=== PATIENT | male | born 1960 | race Caucasian/White ===

== ENCOUNTER 2017-10-19 18:38 | Inpatient (IN) | payer MEDICARE, MEDICAID ==
[~2017-10-19] VITALS: Ht 188 cm; Wt 104.8 kg
[2017-10-19 18:45] VITALS: BP 172/84
[2017-10-19] MEDS ORDERED: OXYCONTIN10 M1 PO (18:57)
[2017-10-19] MEDS ORDERED: HYDRALAZINE 2525 MG PO (18:57)
[2017-10-19] MEDS ORDERED: MELATONIN3 MG PO (18:58)
[2017-10-19] MEDS ORDERED: MUCINEX600 MG PO (18:58)
[2017-10-19] MEDS ORDERED: NEURONTIN600 MG PO (18:59)
[2017-10-19] MEDS ORDERED: VITAMIN D50000 UNIT PO (18:59)
[2017-10-19] MEDS ORDERED: SYNTHROID112 MCG PO (18:59)
[2017-10-19] MEDS ORDERED: COREG25 MG PO (19:00)
[2017-10-19] MEDS ORDERED: DUONEB 2.5-0.5 M3 ML INH (19:00)
[2017-10-19] MEDS ORDERED: SENSIPAR 30 MG30 M1 PO (19:01)
[2017-10-19] MEDS ORDERED: CALCIUM ACETAT667 MG PO (19:01)
[2017-10-19] MEDS ORDERED: ONDANSETRON HCL4 M2 PO (19:01)
[2017-10-19] MEDS ORDERED: APAP650 PO (19:02)
[2017-10-19] MEDS ORDERED: RESTORIL15 MG PO (19:02)
[2017-10-19 20:10] LABS: HEMATOCRIT 32.3 % (42.0-52.0); HEMOGLOBIN 10.5 gm/dL (14.0-18.0); MCH 29.9 pg (26.0-34.0); MCHC 32.4 g/dL (28.0-37.0); MCV 92.2 fL (80.0-100.0); MPV 9.1 fl. (7.2-11.1); NUCLEATED RBCS 0 /100WBC; PLATELET COUNT* 187 thou/uL (150-400); RBC 3.51 mil/uL (4.50-6.00); RDW-CV 14.4 % (10.5-14.5); WBC 8.6 thou/uL (4.0-11.0)
[2017-10-19 20:18] LABS: ANION GAP 10 mmol/L (7-16); BUN 34 mg/dL (7-18); CALCIUM 8.6 mg/dL (8.5-10.1); CHLORIDE 100 mmol/L (98-107); CO2 29 mmol/L (21-32); CREATININE 7.1 mg/dL (0.6-1.3); GLUCOSE 96 mg/dL (70-99); POTASSIUM 3.7 mmol/L (3.5-5.1); SODIUM 139 mmol/L (136-145)
[2017-10-19 20:25] LABS: ALBUMIN 2.8 g/dL (3.4-5.0); ALKALINE PHOSPHATASE 135 U/L (46-116); SGOT 17 U/L (15-37); TOTAL BILIRUBIN 0.9 mg/dL (<0.1-1.0); TROPONIN-I LEVEL 0.16 ng/mL (<0.06)
[2017-10-19 20:47] LABS: SGPT < 6 U/L (30-65)
[2017-10-19 20:56] LABS: ABSOLUTE EOSINOPHILS 0.3 thou/uL (0.0-0.7); ABSOLUTE LYMPHOCYTES 0.4 thou/uL (0.8-5.3); ABSOLUTE NEUTROPHILS 6.9 thou/uL (1.6-8.1); MAGNESIUM 2.2 mg/dL (1.8-2.4)
[2017-10-19 20:57] LABS: HYPOCHROMASIA 2+; OVALOCYTES 1+; PLATELET ESTIMATE ADEQUATE
[2017-10-19 22:55] VITALS: BP 136/73
[2017-10-19 23:00] VITALS: BP 146/68
--- NOTE | 2017-10-20 00:10 | NUR ---
RECEIVED REPORT FROM ER. ARRIVED TO ROOM AT 2300. BATH GIVEN WITH COMPLETE SKIN ASSESSMENT. MULTIPLE LESIONS AND SCARS. PT HAS IMMOBILIZER TO LT ARM DUE TO FX LT SHOULDER. AREA TO LT LATERAL BASE OF THUMB NOTED TO HAVE DK ESCAR TISSUE. 4X4 APPLIED TO KEEP FROM RUBBING ANY FURTHER ON IMMOBILIZER. AREA NOTED TO LT ARM PIT DUE TO RUBBING ON IMMOBILIZER ALSO, ABD APPLIED. PT HAS LT ARM FISTULA, UNABLE TO EVALUATE IT AT THIS TIME. RT CHEST TESSIO NOTED. ENCOURAGING PT TO SIT UPON SIDE OF BED FOR REDRESSING. ASKING PT TO STAND TO HELP BUT STATES "I CAN'T". PT ATE TURKEY SANDWICH THEN NPO AFTER THIS. TELEMETRY APPLIED SHOWING SR. SEE ADMISSION ASSESSMENT AND HX. WILL CONT TO MONITOR AND ASSIST NEEDED.
[2017-10-20 04:00] VITALS: BP 132/65
--- NOTE | 2017-10-20 07:17 | NUR ---
ASSISTED WITH REPOSITIONING FROM BACK TO RT SIDE. C/O NAUSEA, NOTED TO BE CHRONIC. NO MEDS AVAILABLE. NPO SINCE ATE SANDWICH AT 0030. TELEMETRY CONT TO SHOW SR. HOURLY ROUNDING OBSERVED.
[2017-10-20 11:35] VITALS: BP 128/65
--- NOTE | 2017-10-20 12:45 | NUR ---
CM ASSESSMENT: Pt is A&O. Normally resides at home with his and children. Pt was discharged from [facility] skilled yesterday, went home, felt weak and fell. Pt states that he has a walker and cane that he can use. Pt received HD at [facility] on a MWF schedule. No hx of HH. Pt states that he is open to return to [facility] [place]. Spoke with Charlee at [facility], she requested that an initial referral be faxed, she will have the SW check for skilled days. CM faxed initial referral. Pt scheduled to have dialysis today. PT/OT evals ordered. Following.
--- NOTE | 2017-10-20 13:03 | NUR ---
Nutrition: Consult received for "renal diet." Spoke with pt; he refused education. He stated "I already have all that info from dialysis. I try to eat some things right, but I don't follow it 100%" Wt: 231#. H/o DM, ESRD on HD. Pt stated his last A1c was 5.3%. Has a healing ulcer on coccyx. Pt was eating lunch during visit, but not much. He stated he was full (about 40-50% eaten). Mild nutrition risk at this time. Pt appears non-compliant. Expect good po intake. Consult RD if further education is desired.
--- NOTE | 2017-10-20 14:29 | EKG ---
[place] [address] ELECTROCARDIOGRAM REPORT Name: NEY SALDANA Room: [address] ADM IN .R.#: [id number] Admission: 10/19/17 Attend Phys: Montrell Cabral Discharge: Date of : 60 Report #: [id number] THIS REPORT FOR: //name// [facility] ED Test Date: 2017-10-19 Test Time: 19:23:35 Pat Name: NEY SALDANA Department: Room: [address] Gender: M Lathe Turner: : 1960 Requested By: Melissa De Jesus Order Number: [id number] Yoshi MD: Mendez Richards Measurements Intervals [place] Rate: 75 P: 43 VA: 189 QRS: 32 QRSD: 113 T: 74 QT: 404 QTc: 452 Interpretive Statements Sinus rhythm Probable left atrial enlargement septal infarct, age indeterminate nonspecific st changes No previous ECG available for comparison Electronically Signed On 10-20-2017 14:28:53 BISQUE KILN DRAWER by Mendez Richards [email or web address] <ELECTRONICALLY SIGNED> By: Mendez Richards MD, [facility] 10/20/17 1428 22 22 Mendez Richards MD, FACC /EPI
--- NOTE | 2017-10-20 14:59 | NUR ---
WOUND CARE NOTE: CONSULT RECEIVED FOR PRESSURE WOUND SACRUM, L. HAND. PATIENT PRESENTS WITH BLANCHABLE REDNESS TO HIS SACROCOCCYGEAL REGION WITH A PARTIAL THICKNESS WOUND TO THE LEFT SIDE. BELIEVE THIS TO BE A FRICTION INJURY AND BELIEVE PATIENT TO HAVE A FUNGAL RASH. PLACED BARRIER OINTMENT WITH ANTIFUNGAL. LEFT AXILLA: HEALING BLISTER TO THE MEDIAL ASPECT OF HIS ARM. LEFT OPEN TO AIR. PATIENT'S AXILLA IS MACERATED, BELIEVE TO HAVE A FUNGAL RASH WELL. CLEANSED WELL WITH SOAP AND WATER, PATTED DRY. APPLIED INTERDRY AG. LEFT THUMB: ULCER MEASURING 1X1.3 WITH DRY, BLACK SCAB COVERING ENTIRE WOUND BED. NO DRAINAGE NOTED. MARICRUZ-WOUND WITH MAROON DISCOLORATION. CLEANSED WITH SOAP AND WATER, PATTED DRY. PAINTED WITH BETADINE AND ALLOWED TO DRY. LEFT WRIST: PARTIAL THICKNESS ULCERATION MEASURING 1.2X1.2X0.1, HEALING. PALE, MOIST WOUND BED. CLEANSED WITH SOAP AND WATER, PATTED DRY. PAINTED WITH BETADINE AND ALLOWED TO DRY. PATIENT TOLERATED DRESSING CHANGES WELL. EDUCATED PATIENT ON FINDINGS AND DRESSING SELECTIONS, COMMUNICATED UNDERSTANDING. EDUCATED ON OFFLOADING/TURNING TO KEEP OFF OF HIS BOTTOM, COMMUNICATED UNDERSANDING. RECOMMEND ENCOURAGE GOOD NUTRITION AND HYDRATION
[2017-10-20 15:30] VITALS: BP 148/74
--- NOTE | 2017-10-20 18:57 | NUR ---
PATINET RESTING IN BED. UP TO CHAIR WITH MAX ASSIST X2. AOX4. CURRENTLY RECEIVEING DIALYSIS IN ROOM. VITAL SIGNS SRTABLE AND PATINE TIN NO APPARNET DISTRESS AT THIS TIME. PATINET WAS EDUCATED ON PLAN OF CAER AND THE NEED TO FOLLOW A RENAL DIET. PATINET ORDERED [employer] CH[employer]EN SANDWICH FOR DINNER. HOURLY ROUNDING COMPLETED FOR PATIENT SAFETY.
[2017-10-21 04:00] VITALS: BP 156/77
[2017-10-21 04:54] LABS: HEMATOCRIT 30.8 % (42.0-52.0); HEMOGLOBIN 9.9 gm/dL (14.0-18.0); MCH 29.6 pg (26.0-34.0); MCHC 32.1 g/dL (28.0-37.0); MCV 92.2 fL (80.0-100.0); MPV 9.3 fl. (7.2-11.1); RBC 3.34 mil/uL (4.50-6.00); RDW-CV 14.5 % (10.5-14.5); WBC 6.9 thou/uL (4.0-11.0)
[2017-10-21 05:08] LABS: CALCIUM 8.3 mg/dL (8.5-10.1); POTASSIUM 3.8 mmol/L (3.5-5.1); TROPONIN-I LEVEL 0.13 ng/mL (<0.06)
--- NOTE | 2017-10-21 07:25 | NUR ---
ASSUMED CARE OF PT AT 1930, NURSING ASSESSMENT COMPLETED AT START OF SHIFT. PT CONTINUES ON TELE MONITOR, TRACING SINUS RHYTHM THIS SHIFT. PT C/O NAUSEA AFTER TAKING HS MEDICATIONS. ZOFRAN GIVEN. PT WAS DIALYSED IN ROOM AT START OF SHIFT, PER DIALYSIS NURSE, 3L OF FLUID REMOVED FROM PATIENT. AT 0600, PT C/O NOT BEING ABLE TO URINATE, PT BLADDER SCANNED AND OVER [address]DER[address] LONG NOTIFIED, AND NEW ORDERS RECEIVED FOR URINARY CATHETER. SPOKE TO PT IN REGARDS TO NEED FOR URINARY CATHETER, PT RELUCTANT, STATING HE HAD NEVER HAD ONE BEFORE AND WAS ANXIOUS ABOUT IT. EDUCATED PT IN REGARDS TO BLADDER DISTENTION, PT STATED HE WANTED TO WAIT UNTIL AFTER BREAKFAST. DISCUSSED WITH AM SHIFT NURSE DURING REPORT. HOURLY ROUNDING COMPLETED THIS SHIFT, Q2H TURNS COMPLETED. CALL LIGHT REMAINS WITHIN REACH.
[2017-10-21 11:20] LABS: URINE BILIRUBIN NEGATIVE (Negative); URINE BLOOD NEGATIVE (Negative); URINE CLARITY CLEAR; URINE COLOR BROWN; URINE GLUCOSE-RANDOM TRACE (Negative); URINE KETONES NEGATIVE (Negative); URINE LEUKOCYTES-REFLEX NEGATIVE (Negative); URINE NITRITE-REFLEX NEGATIVE (Negative); URINE PROTEIN 3+ (Negative); URINE SPECIFIC GRAVITY 1.025 (1.005-1.030); URINE UROBILINOGEN 0.2 E.U./dl (0.2-1.0)
[2017-10-21 11:26] LABS: BACTERIA-REFLEX 1-9 Few /HPF (None Seen); CASTS None Seen /LPF (None Seen); CRYSTALS None Seen /LPF (None Seen); MUCUS None Seen strn/LPF (None Seen); SQUAMOUS 0-3 Few /LPF (0-3); URINE RBC 3-10 Few /HPF (0-2); URINE WBC-REFLEX 0-5 Rare /HPF (0-5)
[2017-10-21 11:28] VITALS: BP 177/93
--- NOTE | 2017-10-21 15:01 | NUR ---
Spoke with Pt regarding disposition, Pt stated that he does not want to go to [facility], but is in agreement with going to [facility]. Spoke with Angie, she informed that [facility] had sent a referral, but stated that she hadn't heard anything further. CM faxed updated referral. Per Dr Bautista, anticipate that Pt will be ready to dc tomorrow. Following.
--- NOTE | 2017-10-21 15:59 | 2DMMODE ---
[place] [address] 2 D/M-MODE ECHOCARDIOGRAM Name: NEY SALDANA Room: [address] IN [facility]#: [id number] Admission: 10/19/17 Attend Phys: Raman Diaz Discharge: Date of : 60 Date of Service: 10/21/17 1558 Report #: [id number] THIS REPORT FOR: //name// APPROVED REPORT Study performed: 10/21/2017 11:10:28 EXAM: Comprehensive 2D, Doppler, and color-flow Echocardiogram Patient Location: In-Patient Room #: 200 Status: routine BSA: 2.31 HR: 74 bpm BP: 156/77 mmHg Rhythm: NSR Other Information Study Quality: Good Indications Elevated Troponin weakness 2D Dimensions LVEF(%): 30.15 (>50%) IVSd: 17.76 (7-11mm) LVOT Diam: 19.44 (18-24mm) LVDd: 43.68 mm PWd: 15.65 (7-11mm) Ascending Ao: 31.24 (22-36mm) LVDs: 37.55 (25-40mm) Aortic Root: 32.33 mm Osman's LVEF: 30.15 % Volumes Left Atrial Volume (Systole) LA ESV Index: 42.40 mL/m2 Aortic Valve AoV Peak Luis E.: 1.93 m/s AO Peak Gr.: 14.84 mmHg LVOT Max P.33 mmHg AO Mean Gr.: 8.89 mmHg LVOT Mean P.98 mmHg LVOT Max V: 0.76 m/s AO V2 VTI: 40.24 cm LVOT Mean V: 0.45 m/s MATIAS (VTI): 1.09 cm2 LVOT V1 VTI: 14.77 [place] [address] 2 D/M-MODE ECHOCARDIOGRAM Name: NEY SALDANA Room: [address]#: [id number] Admission: 10/19/17 Attend Phys: Raman Diaz Discharge: Date of : 60 Date of Service: 10/21/17 1558 Report #: [id number] Mean Gr.: 6.15 mmHg E/A Ratio: 1.49 MV Decel. Time: 164.26 ms MV E Max Luis E.: 1.67 m/s MV PHT: 47.63 ms MVA (PHT): 4.62 cm2 TDI E/Lateral E': 18.56 E/Medial E': 33.40 Medial E' Luis E.: 0.05 m/s Lateral E' Luis E.: 0.09 m/s Pulmonary Valve PV Peak Luis E.: 0.81 m/s PV Peak Gr.: 2.64 mmHg Tricuspid Valve TR Peak Gr.: 34.59 mmHg RVSP: 39.00 mmHg Left Ventricle The left ventricle is normal size. There is global hypokinesis. Moderate concentric left ventricular hypertrophy. Left ventricular systolic function is moderately decreased. LVEF is 35-40%. Transmitral Doppler flow pattern suggests restrictive physiology. Right Ventricle Right ventricle is mildly dilated. The right ventricular systolic function is normal. Atria Left atrium is moderately dilated. Right atrium is mildly dilated. Aortic Valve Moderate aortic valve sclerosis. No aortic regurgitation is present. Moderate aortic stenosis. Mitral Valve Moderate mitral annular calcification. Mild mitral regurgitation. No evidence of mitral valve stenosis. Tricuspid Valve The tricuspid valve is normal in structure. Mild tricuspid regurgitation. The RVSP is 45-50 mmHg. Pulmonic Valve The pulmonary valve is normal in structure. [place] [address] 2 D/M-MODE ECHOCARDIOGRAM Name: NEY SALDANA Room: [address]#: [id number] Admission: 10/19/17 Attend Phys: Raman Diaz Discharge: Date of : 60 Date of Service: 10/21/17 1558 Report #: [id number] regurgitation. Great Vessels The aortic root is normal in size. IVC is normal in size and collapses with >50% inspiration Pericardium There is no pericardial effusion. <Conclusion> The left ventricle is normal size. Moderate concentric left ventricular hypertrophy. There is global hypokinesis. LVEF is 35-40%. Transmitral Doppler flow pattern suggests restrictive physiology. Right ventricle is mildly dilated. Left atrium is moderately dilated. Right atrium is mildly dilated. Moderate aortic valve sclerosis. Moderate aortic stenosis. Moderate mitral annular calcification. Mild mitral regurgitation. Mild tricuspid regurgitation. The RVSP is 45-50 mmHg. <ELECTRONICALLY SIGNED> By: Ricardo Phillip MD, FACC 10/21/17 1558 1558 1558 Ricardo Phillip MD, FACC /INF
--- NOTE | 2017-10-21 17:20 | CON ---
[address] [address] CONSULTATION Name: NEY SALDANA Room: [address] IN ..#: [id number] Admission: 10/19/17 Attend Phys: Montrell Cabral Discharge: Date of : 60 Report #: [id number] THIS REPORT FOR: //name// CC: Dorothy Diaz DATE OF SERVICE: 10/20/2017 HISTORY OF PRESENT ILLNESS: The patient is a 56-year-old white male who I was asked to see in the hospital today after he complained of being weak. Unfortunately, no old records are available. The history is obtained from the patient. There are no family members available. The patient has a previous history of diabetes and developed end-stage renal disease about 2 years ago. He has been on hemodialysis. He currently has a temporary dialysis catheter in place. Apparently around September 23, he was at home when he tripped and fell in the kitchen. He fractured his left arm. He was admitted to [facility] for 5 days. His arm was placed in a sling and he did not require surgery. He was then discharged to a group home unit for rehab. The patient has been primarily in a wheelchair. He has been dialyzing. He was apparently discharged from the group home to home yesterday and was sent home by transportation. When he got home; however, yesterday he complained of being very weak and could not walk. An ambulance was called. He had some nausea, but no recent bleeding. He denied any chest pain, shortness of breath, palpitations, or syncope. PAST MEDICAL HISTORY: Otherwise significant for tonsillectomy, appendectomy, and he has a history of hypertension. MEDICATIONS: Consists of carvedilol, Neurontin for restless leg syndrome, hydralazine, , and oxycodone for his shoulder pain. ALLERGIES: He has no known drug allergies. FAMILY HISTORY: Negative for heart disease. SOCIAL HISTORY: He is . He and his live in [place]. He is retired from a [employer]. No smoking. drinks alcohol. He does smoke marijuana. PHYSICAL EXAMINATION: GENERAL: Revealed a middle-aged male lying in bed, he appeared in no distress. VITAL SIGNS: He had a blood pressure 140/70, pulse 70, he is afebrile. His height is 6 feet 2 inches, weight 230 pounds. HEENT: He was anicteric. Conjunctivae are pink. Mucous members are dry. NECK: Veins do not appear to be distended. CHEST: [place] [address] CONSULTATION Name: NEY SALDANA Room: [address]#: [id number] Admission: 10/19/17 Attend Phys: Montrell Cabral Discharge: Date of : 60 Report #: [id number] HEART: Regular rate and rhythm without murmur. ABDOMEN: Obese. EXTREMITIES: Had no edema. Dorsalis pedis pulse cannot be palpated. SKIN: Cool and dry. NEUROLOGIC: Very slow moving. ECG shows a sinus rhythm, septal Q-waves, nonspecific ST-segment changes. His workup in the emergency room yesterday, apparently no x-rays were performed. LAB WORK: Sodium 139, creatinine 7, glucose 96. Liver function studies were normal. Troponin 0.17. BNP 29,347. White blood cell count 8.6, hemoglobin 10.5. IMPRESSION AND RECOMMENDATIONS: 1. Fatigue. Suspect secondary to deconditioning. I would recommend physical therapy. 2. Hypertension. The patient has been on a beta yumiko and hydralazine. 3. Restless leg syndrome. 4. End-stage renal disease. The patient is on hemodialysis. 5. Recent fracture of his left arm. Apparently, no surgery is planned. 6. Anemia. No history of bleeding. 7. Borderline troponin. Doubt myocardial infarction. Recommend no further cardiac evaluation. <ELECTRONICALLY SIGNED> By: Mendez Richards MD, FACC 10/21/17 1720 0922 [id number] Richards MD, FACC /nt
[2017-10-21 17:54] VITALS: BP 173/89
[2017-10-21 18:12] LABS: HEPATITIS B SURFACE AG Negative (Negative)
[2017-10-21 20:00] VITALS: BP 97/67
[2017-10-22 00:17] VITALS: BP 127/75
[2017-10-22 03:59] VITALS: BP 192/91
[2017-10-22 08:24] VITALS: BP 135/76
--- NOTE | 2017-10-22 08:29 | NUR ---
ASSUMED CARE OF PATIENT AT APPROXIMATELY 1999. PATIENT A/O X 4 AND VSS. PATIENT WAS SLIGHTLY AGITATED UPON FIRST ASSESSMENT. HE CAN NOT FIND A [employer] GIFT/CREDIT CARD AND A CELL PHONE CHARGING CORD. PATIENT HAS DISCUSSED THE FACT WITH NURSING THAT HE FEELS THAT THE DAY NURSING STAFF COULD HAVE MISPLACED THEM. PATIENT HAD VERY LITTLE URINE OUTPUT OVERNIGHT. PRESENT URINE IS TEA-COLORED AND CLEAR. PATIENT SCHEDULED FOR DIALYSIS TODAY (10-22-17) AT 1300. PER DAY NURSING, PATIENT IS TO GO TO [facility] F[facility] AFTER DIALYSIS IS COMPLETED TODAY. PATIENT RECEIVED PAIN MEDICATION X 2 DURING NIGHT FOR PAIN LEVELS OF 6-7/10 ON PAIN SCALE IN HIS LEFT SHOULDER AREA. NO OTHER COMPLAINTS OVERNIGHT. NURSING TO FOLLOW-UP NECESSARY. ALL FALL PRECAUTIONS IN PLACE, INCLUDING CALL LIGHT WITHIN REACH. WILL CONTINUE TO MONITOR CLOSELY.
[2017-10-22] MEDS ORDERED: PHENAZOPYRIDIN100 M1 PO (09:30)
[2017-10-22] MEDS ORDERED: FLOMAX0.4 MG PO (09:30)
[2017-10-22] MEDS ORDERED: LEVSIN0.125 MG SUBLING (09:30)
[2017-10-22] MEDS ORDERED: IMDUR 30 MG TAB30 M1 PO (09:30)
[2017-10-22 14:44] VITALS: BP 135/76
--- NOTE | 2017-10-22 14:59 | NUR ---
Pt to dc to [facility] today. Faxed dc orders. Chart copied. Nurse report number provided, . Left VM for Pt's , Tammy. Facility to medicinal plant picker at 6pm.
[2017-10-22 17:05] VITALS: BP 166/79
--- NOTE | 2017-10-22 17:37 | NUR ---
ASSUMED CARE OF PATIENT AFTER REPORT THIS MORNING. PATIENT AWAKE, ALERT, AN DORIENTED APPROPRIATELY. PHYSICAL ASSESSMENT COMPLETED AND CHARTED. GIVEN SCHEDULED MEDICATIONS, SEE EMAR FOR DOCUMENTATION. VITAL SIGNS STABLE. OXYGEN SATURATION WITHIN NORMAL LIMITS ON ROOM AIR. PATIENT WENT TO DIALYSIS AT 1230. WHEN RETURNED TO ROOM THIS NURSE RESUMED CARE OF THIS PATIENT. RECEIVED ORDERS TO DISCHARGE PATIENT. IV DISCONTINUED. DISCHARGE PAPERWORK COMPLETED AND SIGNED BY ALL APPROPRIATE PARTIES, ON PATIENT'S CHART. REPORT CALLED AND GIVEN TO MAYITO AT [facility] IN [place]. NURSING WILL CONTINUE TO MONITOR UNTIL DISCHARGE.
--- NOTE | 2017-10-22 18:48 | NUR ---
PATIENT DISCHARGED AT THIS TIME.
--- NOTE | 2017-10-24 16:22 | CON ---
[address] [address] CONSULTATION Name: NEY SALDANA Room: [address]#: [id number] Admission: 10/19/17 Attend Phys: Montrell Cabral Discharge: 10/22/17 Date of : 60 Report #: [id number] THIS REPORT FOR: //name// CC: Dorothy Diaz NEPHROLOGY CONSULTATION CONSULTING PHYSICIAN: Raman Diaz DO REASON FOR CONSULTATION: End-stage kidney disease. HISTORY OF PRESENT ILLNESS: A 56-year-old gentleman with history of end-stage kidney disease, admitted after a fall at home, he suffered a left humeral fracture at [facility] last month, was discharged to a intermediate facility, eventually went home, but again had a fall and is admitted again with weakness, inability to care for himself and an elevated troponin level, presently has no complaints. REVIEW OF SYSTEMS: Constitutional, psych, heme, eyes, ENT, respiratory, cardiac, GI, , endocrine, all negative except as documented above. PAST MEDICAL AND SURGICAL HISTORY: End-stage kidney disease, on hemodialysis on Friday, Friday and Friday, history of appendectomy. SOCIAL HISTORY: Positive for marijuana. No tobacco. FAMILY HISTORY: Not pertinent in this 56-year-old gentleman. CURRENT MEDICATIONS: Reviewed. PHYSICAL EXAMINATION: VITAL SIGNS: Blood pressure 128/65, pulse 70, respirations 17, temperature 36.9. GENERAL: No acute distress. EYES: Extraocular movements intact. EARS: Externally normal. CARDIOVASCULAR: Regular rate. LUNGS: Diminished breath sounds. ABDOMEN: Soft. MUSCULOSKELETAL: Nontender. PSYCHIATRIC: Awake, alert. LABORATORY DATA: White count 8.6, hemoglobin 10.5, platelets 187. Sodium 139, potassium 3.7, chloride 100, bicarbonate 29, BUN 34, creatinine 7.1, glucose 96, calcium 8[place] [address] CONSULTATION Name: NEY SALDANA Room: [address]#: [id number] Admission: 10/19/17 Attend Phys: Montrell Cabral Discharge: 10/22/17 Date of : 60 Report #: [id number] ASSESSMENT AND PLAN: End-stage kidney disease, on hemodialysis on Friday, Friday and Friday. We will continue maintenance dialysis while here in the hospital. We will follow up for dialysis needs. Thank you for requesting my opinion in the care and management of this patient. <ELECTRONICALLY SIGNED> By: Rin Vazquez MD 10/24/17 1622 1644 [id number] Vazquez MD /nt
== END 2017-10-22 18:49 | DRG 682 ==
LOC: M.ERS 18:38 → M.TBA-ER 21:11 → M.2W 21:11 → M.ORTHSURG 10-21 19:05
PROVIDERS: Internal Medicine; Internal Medicine Nephrology; Nurse Practitioner Family; ADMIT Internal Medicine
PROC: 5A1D70Z Performance of Urinary Filtration, Intermittent, Less than 6 Hours Per Day (ICD-10-PCS; principal; 2017-10-21)
PROC: 5A1D70Z Performance of Urinary Filtration, Intermittent, Less than 6 Hours Per Day (ICD-10-PCS; 2017-10-22)
DX: I12.0 Hypertensive chronic kidney disease with stage 5 chronic kidney disease or end stage renal disease (principal); N18.6 End stage renal disease; S42.362A Displaced segmental fracture of shaft of humerus, left arm, initial encounter for closed fracture; N35.9 Urethral stricture, unspecified; W18.39XA Other fall on same level, initial encounter; E66.9 Obesity, unspecified; G25.81 Restless legs syndrome; D64.9 Anemia, unspecified; Z99.2 Dependence on renal dialysis; Z90.49 Acquired absence of other specified parts of digestive tract; Z68.29 Body mass index [BMI] 29.0-29.9, adult; Y93.89 Activity, other specified; Y92.89 Other specified places as the place of occurrence of the external cause; Y99.8 Other external cause status